=== PATIENT | male | born 1965 | race Caucasian/White ===

== ENCOUNTER 2019-03-04 09:57 | Emergency (ER) | payer OTHER ==
[2019-03-04 10:21] VITALS: BP 172/79
[2019-03-04] MEDS ORDERED: DIPH,PERTUSS(ACELL),TET VAC/PF 0.5 ML DISP.SYRIN IM ONE (10:28)
--- NOTE | 2019-03-04 10:28 | ED Physician Documentation ---
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 Pt has good ROM and the nail does not appear to have injured bone. Tetanus is unknown.) - ROS CONST: no problems EYES/ENT: none CVS/RESP: none GI/: none MS/SKIN/LYMPH: other (foreign body, nail, in R small finger over middle phalanx, dorsal) - PAST HX Past History: none Allergies/Adverse Reactions: Allergies Allergy/AdvReac Type Severity Reaction Status Date / Time No Known Allergies Allergy Verified 03/04/19 10:10 Home Medications: Ambulatory Orders Medication Instructions Recorded Cephalexin [Keflex] 500 mg PO Q8H #15 capsule 03/04/19 - SOCIAL HX Smoking History: non-smoker - FAMILY HX Family History: No - VITAL SIGNS Vital Signs: Vital Signs Temp Pulse Resp BP Pulse Ox 97.9 F 88 18 172/79 97 03/04/19 10:00 03/04/19 10:00 03/04/19 10:00 03/04/19 10:00 03/04/19 10:00 - REVIEWED ASSESSMENTS Nursing Assessment Reviewed: Yes Vitals Reviewed: Yes Progress - Progress Progress: X-ray R small finger: Large nail foreign body noted over the 5th finger. No gross bony abnormality is detected on this study. Tdap 0.5 mg IM Pt has not had and does not desire flu vaccine. Rx Keflex 500 mg po q 8 h x 5 days. ED Results Lab/Radiology - Orders Orders: ED Orders Category Date Time Status XRAY LITTLE FINGER [FINGER 2 VIEWS OR MORE] [RAD] Stat Exams 03/04/19 Taken General Adult Physical Exam - PHYSICAL EXAM GENERAL APPEARANCE: mild distress NECK: normal inspection, supple RESPIRATORY: no resp distress, chest non-tender, breath sounds normal CVS: reg rate & rhythm, heart sounds normal BACK: normal inspection SKIN: other (foreign body, nail, through dorsal side of R small finger over middle phalanx. Good ROM at joint. Bone appear unaffected.) EXTREMITIES: normal range of motion NEURO: oriented X3, motor nml, sensation nml Discharge Clincal Impression: foreign body R small finger Prescriptions: Cephalexin [Keflex] 500 mg PO Q8H #15 capsule Referrals: Primary Doctor,No [Primary Care Provider] - Condition: Good Disposition: 01 HOME, SELF-CARE Decision to Admit: NO Decision Time: 10:47
--- NOTE | 2019-03-04 10:37 | Diagnostic Imaging Report ---
PATIENT MR#: [id number] PATIENT PATIENT NAME: JEFFY ESCOBEDO DATE OF : 1965 REFERRING PHYSICIAN: Kd Mina EXAM DATE: 03/04/2019 ACCESSION NUMBER: [id number] EXAM DESCRIPTION: FINGER 2 VIEWS OR MORE Exam: Right 5th finger. History: Foreign body. Multiple views of the right 5th finger are submitted. There is no image along the axis of the nail foreign body traversing the right 5th finger is noted to indicate bony involvement. No gross fracture is otherwise identified. No soft tissue abnormalities are identified Impression: Large nail foreign body noted over the 5th finger. No gross bony abnormality is detected on this stefanie dy. Read by: Dr. Danilo Messer Transcribed by: Transcribed Date: Electronically signed by: Dr. Danilo Messer Date signed: 03/04/2019 10:36:47 AM
== END 2019-03-04 10:40 | disposition home or self-care (01) ==
LOC: ED 09:57
DX: S60.456A Superficial foreign body of right little finger, initial encounter (principal); W45.0XXA Nail entering through skin, initial encounter
CPT/HCPCS: 73140; 99283; 99284